=== PATIENT | male | born 1975 | race Caucasian/White ===

== ENCOUNTER 2016-10-10 13:51 | Emergency (ER) | payer OTHER ==
[~2016-10-10] VITALS: Ht 190.5 cm; Wt 72.6 kg
--- NOTE | 2016-10-10 14:31 | ED GI/GU/ABDOMINAL COMPLAINT ---
History of Present Illness General Chief Complaint: Abdominal Pain/Flank Pain Stated Complaint: ARIGHT SIDED ABD/FLANK PAIN Source: patient Exam Limitations: no limitations Vital Signs & Intake/Output Vital Signs & Intake/Output Vital Signs Date Time Temp Pulse Resp B/P Pulse O2 O2 Flow FiO2 Ox Delivery Rate 10/10 1858 97.7 63 16 126/58 97 Room Air 10/10 1647 97.4 80 16 130/65 97 Room Air 10/10 1355 96.7 60 20 148/79 98 Room Air Allergies Coded Allergies: fexofenadine (From MAYRA) (HIVES 10/10/16) Reconcile Medications Adalimumab (Humira Pen) 40 MG/0.8 ML PEN.IJ.KIT 1 SYR SC Q2W PSORIASIS ( Reported) Alprazolam 0.5 MG TABLET 0.5 TAB PO PRN ANXIETY (Reported) Aspirin/Acetaminophen/Caffeine (Excedrin Extra Strength Caplet) 250 MG-250 MG-65 MG TABLET 2 TAB PO PRN PAIN (Reported) Cannabis (Marijuana Oil) (Unknown Strength) AMP (Unknown Dose) INH PTSD ( Reported) Cyanocobalamin (Vitamin B-12) 1,000 MCG TABLET 1 TAB PO DAILY SUPPLEMENT ( Reported) Dicyclomine Hydrochloride (Bentyl) 10 MG CAPSULE 1 CAP PO PRN GI (Reported) Escitalopram Oxalate (Lexapro) (Unknown Strength) TABLET (Unknown Dose) PO DAILY MENTAL HEALTH (Reported) Fluocinonide (Unknown Strength) OINT...G. (Unknown Dose) TOP PRN PSORIASIS ( Reported) apply to affected area(s) Hydrocortisone Valerate (Unknown Strength) CREAM..G. (Unknown Dose) TOP PRN PSORIASIS (Reported) apply to affected area(s) Ibuprofen (Advil) 200 MG TABLET 2-6 TAB PO DAILY PRN PAIN (Reported) Ibuprofen 800 MG TABLET 1 TAB PO TID PAIN L Gasseri/B Bifidum/B Longum ([employer] Colon Health Capsule) 1.5 BILLION CELL CAPSULE 1 CAP PO DAILY SUPPLEMENT (Reported) Multivitamin (Multi-Day Vitamins) 1 EACH TABLET 1 TAB PO DAILY SUPPLEMENT ( Reported) Nabumetone 750 MG TABLET 1 TAB PO BID GI (Reported) Ondansetron (Zofran Odt) 4 MG TAB.RAPDIS 1 TAB SL TID nausea Oxycodone HCl/Acetaminophen (Percocet 5-325 MG Tablet) 5 MG-325 MG TABLET 1-2 TAB PO Q6P PRN PAIN Scopolamine Hydrobromide (Transderm-Scop) 1.5MG/3DAY PATCH.TD.3 1 PAT TOP Q3D nausea apply to the hairless area behind 1 ear at least 4 hours before effect is required; reapply every 3 days as needed Tamsulosin HCl (Flomax) 0.4 MG CAP.ER.24H 1 CAP PO DAILY MAILE JUAREZ Tramadol HCl 50 MG TABLET 1 TAB PO BIDP PRN PAIN (Reported) Triage Note: PT TO ED C/O RIGHT SIDED ABD PAIN X A FEW HOURS. DENIES V/D. C/O NAUSEA. DENIES S/S. Triage Nurses Notes Reviewed? yes Onset: Abrupt Duration: day(s):, getting worse Timing: recent history Quality/Severity: sharpness, severe Location: right lower quadrant Radiation: back Activities at Onset: none HPI: 41-year-old male that has a history of some intermittent abdominal pain that is chronic for him comes into emergency room with increased pain over last 24 hours. Severe sharp right lower abdominal pain. Associated nausea and sweating. Associated chills and body aches and episode of vomiting today. Denies any changes in bowel movement. History of diverticulitis and a history of psoriasis on Humira. Denies any previous abdominal surgeries. Denies any other associated symptoms currently. Past History Travel History Traveled to [place] past 21 day No Medical History Any Pertinent Medical History? see below for history Gastrointestinal: diverticulitis Other Medical Hx: Psoriasis Surgical History Surgical History: no previous abdominal surgeries Psychosocial History What is your primary language Monegasque Tobacco Use: Current Daily Use Daily Tobacco Use Amount/Type: => 5 Cigarettes daily ETOH Use: denies use Illicit Drug Use: marijuana Family History Hx Contributory? No Review of Systems Review of Systems Constitutional: Reports: no symptoms. EENTM: Reports: no symptoms. Respiratory: Reports: no symptoms. Cardiovascular: Reports: no symptoms. GI: Reports: see HPI. Genitourinary: Reports: no symptoms. Musculoskeletal: Reports: no symptoms. Skin: Reports: no symptoms. Neurological/Psychological: Reports: no symptoms. Hematologic/Endocrine: Reports: no symptoms. Immunologic/Allergic: Reports: no symptoms. All Other Systems: Reviewed and Negative Physical Exam Physical Exam General Appearance: well developed/nourished, alert, awake, moderate distress Head: atraumatic, normal appearance Eyes: Bilateral: normal appearance, EOMI. Ears, Nose, Throat, Mouth: hearing grossly normal, moist mucous membrane Neck: normal inspection, full range of motion Respiratory: normal breath sounds, no respiratory distress Cardiovascular: regular rate/rhythm Gastrointestinal: tenderness, mild guarding right lower abdomen, Back: normal inspection Extremities: normal range of motion Neurologic/Psych: awake, alert, oriented x 3 Skin: diaphoresis Core Measures ACS in differential dx? No Severe Sepsis Present: No Septic Shock Present: No Progress Differential Diagnosis: appendicitis, biliary colic, bowel obstruction, cholecystitis, diverticulitis, gastritis, hepatitis, pancreatitis, peptic ulcer, PUD/GERD, perforated viscous, SBO, ureterolithiasis, urinary retention, UTI/ pyelo Plan of Care: Orders Procedure Date/time Status CULTURE,URINE 10/10 1855 Active Add-on Test (ER Only) 10/10 185 Active LACTIC ACID 10/10 1430 Complete URINALYSIS 10/10 1424 Complete LIPASE 10/10 1424 Complete COMPREHENSIVE METABOLIC PANEL 10/10 1424 Complete CBC WITHOUT DIFFERENTIAL 10/10 1424 Complete Laboratory Tests 10/10/16 1748: Urine Color YEL, Urine Clarity HAZY H, Urine pH 6.5, Ur Specific Rossiter 1.010, Urine Protein NEG, Urine Ketones 15 H, Urine Nitrite NEG, Urine Bilirubin NEG, Urine Urobilinogen 0.2, Ur Leukocyte Esterase NEG, Ur Microscopic SEDIMENT EXAMINED, Urine RBC >75 H, Urine WBC RARE, Ur Epithelial Cells OCCAS, Urine Crystals 1+ CA OX H, Urine Mucus MOD H, Urine Hemoglobin LARGE H, Urine Glucose NEG 10/10/16 1730: Lactic Acid Cancelled 10/10/16 1515: Lactic Acid 1.7 10/10/16 1515: Anion Gap 13, Estimated GFR > 60, BUN/Creatinine Ratio 21.3, Glucose 119 H, Calcium 9.5, Total Bilirubin 0.9, AST 22, ALT 28, Alkaline Phosphatase 100, Total Protein 7.2, Albumin 4.5, Globulin 2.7, Albumin/Globulin Ratio 1.7, Lipase 79, CBC w Diff MAN DIFF ORDERED, RBC 4.69 L, MCV 99.3 H, MCH 33.0 H, RDW 13.1 , MPV 7.7, Gran % 78.8 H, Lymphocytes % 13.8 L, Monocytes % 5.9, Eosinophils % 0.8, Basophils % 0.7, Absolute Granulocytes 18.0 H, Segmented Neutrophils 73, Band Neutrophils 6 H, Absolute Lymphocytes 3.1, Lymphocytes 16 L, Monocytes 5, Absolute Monocytes 1.4 H, Absolute Eosinophils 0.2, Absolute Basophils 0.1, Platelet Estimate ADEQUATE, Normochromic RBCs VERIFIED, Poikilocytosis RARE, Stomatocytes RARE, PUBS MCHC 33.3 Microbiology 10/10 1856 URINE ROUT: Urine Culture - RECD Diagnostic Imaging: Viewed by Me: CT Scan. Discussed w/RAD: CT Scan. Radiology Impression: EXAM TYPE: CAT - CT ABD & PELVIS W IV CONTRAST EXAMINATION : CT ABDOMEN AND PELVIS WITH CONTRAST CLINICAL INFORMATION: 41-year-old male patient with right-sided abdominal pain. Diaphoretic. Acute distress. COMPARISON : None TECHNIQUE: Multidetector volumetric imaging was performed of the abdomen and pelvis before and after the IV administration of 95 mL of Optiray 320 intravenous contrast. Sagittal and coronal reformatted images were obtained on the technologist's workstation. DLP: 264 mGy-cm FINDINGS: Real Estate Transaction Coordinator film is normal. LUNG BASES: The visualized lung bases are unremarkable. LIVER, GALLBLADDER, AND BILIARY TREE: The liver is normal in size and contour. Liver parenchyma is homogeneous except for areas in the right lobe is specifically Couinaud segments 6 and 7. There is a suspicion that the portal vein radicles supplying the segments show thrombus formation. This scan was performed in the hepatic gram phase of the injection and the hepatic veins appear to enhance normally. There is a 7 mm hypodense nodule in Couinaud segment 4 adjacent to the ligament teres of felt to be of no consequence. The gallbladder is normal. PANCREAS: Unremarkable. SPLEEN: Unremarkable. ADRENAL GLANDS: Unremarkable. KIDNEYS AND URETERS: Left kidney is normal in size showing no evidence of hydronephrosis or stone formation. A 1.2 cm in diameter, a presumed cortical cyst, is seen in the midportion of the left kidney. The right kidney is normal in size and shows evidence of moderate hydronephrosis and hydroureter to the point of obstruction at the ureterovesical junction. At this point there is a small calculus measuring 4 mm. No additional calculi are demonstrated. BLADDER: Nearly empty. GASTROINTESTINAL TRACT: The stomach and small bowel are normal. The appendix is normal. There is universal diverticulosis of the colon but no evidence of diverticulitis. ABDOMINAL WALL: No significant hernia is appreciated. LYMPH NODES: Normal. VASCULAR: Unremarkable. PELVIC VISCERA: Unremarkable. OSSEOUS STRUCTURES: Unremarkable. IMPRESSION: 1. The cause of this patient's symptoms is most likely due to the urinary calculus located at the right ureterovesical junction resulting in moderate right-sided hydroureteronephrosis. 2. Incidental finding of intraluminal thrombus formation in the portal venous branches supplying Couinaud segments 6 and 7 in the liver. Etiology unknown. DICTATED BY: JARVIS MASTERSON MD DATE/TIME DICTATED:10/10/161639 COLORING ROOM MAN: GM Initial ED EKG: none Comments: Dr. noble was consulted from urology. Patient will end up following up with him in the office tomorrow. Patient feels better after IV medication and is in no longer any type of distress. Case was discussed with urologist. Patient return if any other concerns worsening symptoms. Patient understands and agrees with plan of care. Departure Departure Disposition: HOME OR SELF CARE Condition: Stable Clinical Impression Primary Impression: Kidney stone on right side Referrals: JENNIFER ROJAS,NAJMA WISE MD,DASHAWN Grimaldo (PCP/Family) Additional Instructions: Take Percocet Flomax and ibuprofen 800 mg as prescribed. Drink plenty of fluids. Follow-up with urologist provided. Return if any other concerns worsening symptoms. Please go over all results of today's visit with your primary care doctor. Contact your primary care doctor to let them know you were here in the emergency room. There may be nonspecific findings which may not be related to your visit today here in the emergency room but may require further evaluation and chronic monitoring by your primary care doctor. If you had a laceration today the chance of foreign body always remains. You should follow-up with your primary care doctor for recheck in 3-5 days for a wound check. If you had an x-ray done there is a chance that a fracture could have been missed on initial read and you should follow-up with your primary care doctor for repeat x-rays if symptoms persist. If your blood pressure was elevated here in the emergency room please have rechecked by her primary care doctor within the next 48 hours by your primary care doctor. If you were prescribed a narcotic here in the emergency room or any type of controlled substances you're not allowed to drive while taking this medication or operate any type of heavy machinery. Narcotics can make you feel lightheaded dizziness nausea and can cause constipation. You may need to tow picker a stool softener. Thank you for choosing [facility] emergency room. Please return to the emergency room immediately if you have any other concerns worsening of symptoms. Departure Forms: Customer Survey General Discharge Information Prescriptions: Current Visit Scripts Oxycodone HCl/Acetaminophen (Percocet 5-325 MG Tablet) 1-2 TAB PO Q6P PRN PAIN #20 TAB Ibuprofen 1 TAB PO TID #30 TAB Tamsulosin HCl (Flomax) 1 CAP PO DAILY #10 CAP Ondansetron (Zofran Odt) 1 TAB SL TID #10 TAB Scopolamine Hydrobromide (Transderm-Scop) 1 PAT TOP Q3D #4 PAT apply to the hairless area behind 1 ear at least 4 hours before effect is required; reapply every 3 days as needed
[2016-10-10] MEDS ORDERED: HUMIRA PEN40 MG/0.8 SC (15:29)
[2016-10-10] MEDS ORDERED: NABUMETONE750 M1 PO (15:30)
[2016-10-10] MEDS ORDERED: TRAMADOL HCL50 M1 PO (15:30)
[2016-10-10] MEDS ORDERED: LEXAPRO20 M1 PO (15:31)
[2016-10-10] MEDS ORDERED: ALPRAZOLAM0.5 M4 PO (15:31)
[2016-10-10] MEDS ORDERED: BENTYL10 M1 PO (15:32)
[2016-10-10] MEDS ORDERED: VITAMIN B-121000 MC3 PO (15:32)
[2016-10-10] MEDS ORDERED: PHILLIPS' COLO1 EACH PO (15:32)
[2016-10-10] MEDS ORDERED: MULTI-DAY VITA1 EACH PO (15:33)
[2016-10-10] MEDS ORDERED: EXCEDRIN EXTRA1 EACH PO (15:33)
[2016-10-10] MEDS ORDERED: ADVIL200 M2 PO (15:33)
[2016-10-10] MEDS ORDERED: FLUOCINONIDE15 G1 TOP (15:34)
[2016-10-10] MEDS ORDERED: HYDROCORTISONE15 GM TOP (15:34)
[2016-10-10] MEDS ORDERED: MARI INH (15:35)
[2016-10-10 15:40] LABS: ABSOLUTE BASOPHIL COUNT 0.1 /CUMM (0.0-0.2); ABSOLUTE EOSINOPHIL COUNT 0.2 /CUMM (0.0-0.7); ABSOLUTE LYMPH COUNT 3.1 /CUMM (1.2-3.4); ABSOLUTE MONOCYTE COUNT 1.4 /CUMM (0.10-0.60); BASOPHIL % 0.7 % (0.0-2.0); EOSINOPHIL % 0.8 % (0-5); GRANULOCYTE % 78.8 % (42.2-75.2); HEMATOCRIT 46.5 % (42-52); MEAN CORPUSCULAR HGB CONC 33.3 G/DL (33.0-37.0); MEAN CORPUSCULAR VOLUME 99.3 FL (80.0-94.0); MEAN PLATELET VOLUME 7.7 FL (7.4-10.4); PLATELET COUNT 256 /CUMM (130-400); RBC DISTRIBUTION WIDTH 13.1 % (11.5-14.5); RED BLOOD CELL CT 4.69 /CUMM (4.70-6.10); WHITE BLOOD CELL COUNT 22.9 /CUMM (4.8-10.8)
--- NOTE | 2016-10-10 17:06 | CT SCAN REPORT ---
EXAMINATION: CT ABDOMEN AND PELVIS WITH CONTRAST CLINICAL INFORMATION: 41-year-old male patient with right-sided abdominal pain. Diaphoretic. Acute distress. COMPARISON: None TECHNIQUE: Multidetector volumetric imaging was performed of the abdomen and pelvis before and after the IV administration of 95 mL of Optiray 320 intravenous contrast. Sagittal and coronal reformatted images were obtained on the technologist's workstation. DLP: 264 mGy-cm FINDINGS: Support Assistant film is normal. LUNG BASES: The visualized lung bases are unremarkable. LIVER, GALLBLADDER, AND BILIARY TREE: The liver is normal in size and contour. Liver parenchyma is homogeneous except for areas in the right lobe is specifically Couinaud segments 6 and 7. There is a suspicion that the portal vein radicles supplying the segments show thrombus formation. This scan was performed in the hepatic gram phase of the injection and the hepatic veins appear to enhance normally. There is a 7 mm hypodense nodule in Couinaud segment 4 adjacent to the ligament teres of felt to be of no consequence. The gallbladder is normal. PANCREAS: Unremarkable. SPLEEN: Unremarkable. ADRENAL GLANDS: Unremarkable. KIDNEYS AND URETERS: Left kidney is normal in size showing no evidence of hydronephrosis or stone formation. A 1.2 cm in diameter, a presumed cortical cyst, is seen in the midportion of the left kidney. The right kidney is normal in size and shows evidence of moderate hydronephrosis and hydroureter to the point of obstruction at the ureterovesical junction. At this point there is a small calculus measuring 4 mm. No additional calculi are demonstrated. BLADDER: Nearly empty. GASTROINTESTINAL TRACT: The stomach and small bowel are normal. The appendix is normal. There is universal diverticulosis of the colon but no evidence of diverticulitis. ABDOMINAL WALL: No significant hernia is appreciated. LYMPH NODES: Normal. VASCULAR: Unremarkable. PELVIC VISCERA: Unremarkable. OSSEOUS STRUCTURES: Unremarkable. IMPRESSION: 1. The cause of this patient's symptoms is most likely due to the urinary calculus located at the right ureterovesical junction resulting in moderate right-sided hydroureteronephrosis. 2. Incidental finding of intraluminal thrombus formation in the portal venous branches supplying Couinaud segments 6 and 7 in the liver. Etiology unknown.
[2016-10-10] MEDS ORDERED: FLOMAX0.4 M1 PO (18:55)
[2016-10-10] MEDS ORDERED: IBUPROFEN800 M1 PO (18:55)
[2016-10-10] MEDS ORDERED: PERCOCET 5-3251 EACH PO (18:55)
[2016-10-10 18:58] VITALS: BP 126/58
[2016-10-10] MEDS ORDERED: TRANSDERM-SCOP1 EACH TOP (19:11)
[2016-10-10] MEDS ORDERED: ZOFRAN ODT4 M1 SL (19:11)
== END 2016-10-10 19:18 ==
LOC: ERH 13:51
PROVIDERS: Physician Assistant Medical
DX: N20.0 Calculus of kidney (principal)
CPT/HCPCS: 74177; 81001; 87086; 96361; 96372; 96374; 96375; J1885; J2405; J2765